=== PATIENT | male | born 1975 | race Caucasian/White ===

== ENCOUNTER 2018-11-26 20:44 | Emergency (ER) | payer OTHER ==
--- NOTE | 2018-11-26 20:53 | PDOC ---
Rapid Medical Evaluation Chief Complaint: Cold Symptoms Time Seen by Provider: 11/26/18 20:50 Medical Evaluation: Allergies Allergy/AdvReac Type Severity Reaction Status Date / Time No Known Allergies Allergy Verified 03/16/18 14:45 11/26/18 20:50 I did a brief in person evaluation on this patient. CC: Fever HPI: Pt has had a fever, sore throat and myalgias x 6 days. PE: Skin: Clear Lungs: Clear Heart:RRR Abd: soft, non tender MS: Moves all extremities without difficulty Neuro: alert Psych: appropriate affect. I have ordered: RBS and influenza Pt will proceed to [facility] ED for further evaluation. Discharge Disposition - Diagnosis Pharyngitis Qualifiers: Pharyngitis/tonsillitis etiology: other specified organisms Qualified Code(s): J02.8 - Acute pharyngitis due to other specified organisms - Referrals - Patient Instructions - Post Discharge Activity
[2018-11-26 20:54] VITALS: BP 123/78; PULSE 86; TEMP 98.8; BMI 26.2
[2018-11-26] MEDS ORDERED: PENICILLIN G BENZATHINE 1,200,000 UNIT/2 ML PFS IM ONE (22:38)
[2018-11-26] MEDS ORDERED: DEXAMETHASONE LIQUID 0.5 MG/5 ML 240 ML BULK BOTTLE PO ONE (22:38)
--- NOTE | 2018-11-26 22:41 | PDOC ---
History of Present Illness - General Chief Complaint: Cold Symptoms Stated Complaint: FLU Time Seen by Provider: 11/26/18 20:50 - History of Present Illness Initial Comments: 11/26/18 22:38 43-year-old male without comorbidities presents for evaluation of fever and progressively worsening sore throat 4 days. Past History - Past Medical History Allergies/Adverse Reactions: Allergies Allergy/AdvReac Type Severity Reaction Status Date / Time No Known Allergies Allergy Verified 11/26/18 20:54 Home Medications: Ambulatory Orders NK [No Known Home Medication] 11/26/18 COPD: No - Suicide/Smoking/Psychosocial Hx Smoking History: Never smoked Have you smoked in the past 12 months: No Information on smoking cessation initiated: No Hx Alcohol Use: No Drug/Substance Use Hx: No Substance Use Type: None Review of Systems - Review of Systems Constitutional: Yes: Chills, Fever, Malaise HEENTM: Yes: Throat Pain, Difficulty Swallowing *Physical Exam - Vital Signs Last Vital Signs Temp Pulse Resp BP Pulse Ox 98.8 F 86 18 123/78 98 11/26/18 20:51 11/26/18 20:51 11/26/18 20:51 11/26/18 20:51 11/26/18 20:51 - Physical Exam Comments: 11/26/18 22:39 HEAD: NC/AT EYES: Conjuntiva clear Ears: Canals and TM's normal NOSE: No d/c THROAT: Moist mucous membrances, oral pharanx erythemic with exudate, uvula midline NECK: Supple without adenopathy CARDIAC: S1 S2 LUNGS: CTA Full and Equal breath sounds ABDOMEN: Soft NT ND MS: Full ROM in all joints without edema NEUROLOGIC: No gross sensory or motor deficits, NVID SKIN: Normal color and temperature no lesions or rashes Medical Decision Making - Medical Decision Making 11/26/18 22:39 Personal examination. We'll treat for strep based on symptoms and history as well as examination. In light of negative rapid strep. A culture was sent *DC/Admit/Observation/Transfer Diagnosis at time of Disposition: Strep pharyngitis Pharyngitis Qualifiers: Pharyngitis/tonsillitis etiology: other specified organisms Qualified Code(s): J02.8 - Acute pharyngitis due to other specified organisms - Discharge Dispostion Disposition: HOME Condition at time of disposition: Stable Decision to Admit order: No - Referrals Referrals: Michael Warren MD [Staff Physician] - - Patient Instructions Printed Discharge Instructions: Strep Throat, DI for Strep Throat Additional Instructions: Warm saltwater gargles multiple times a day will help his your throat pain. He do not require further treatment after the injection you received in the emergency room. Avoid anti-inflammatories such as Advil Motrin Aleve and ibuprofen. He may take Tylenol for pain. Your also given a long-acting steroid which will help with your pain. Return to the emergency room for worsening symptoms and follow-up with your primary care provider in one to 2 days for further evaluation and treatment options. - Post Discharge Activity
[2018-11-26] MEDS ORDERED: DEXAMETHASONE SOD PHOSPHATE 10 MG/1 ML VIAL ONE (22:45)
[2018-11-26] MEDS ORDERED: PENICILLIN G BENZATHINE 2,400,000 UNIT/4 ML PFS ONE (22:45)
== END 2018-11-26 23:06 | disposition home or self-care (01) ==
LOC: JERFT 20:44
DX: J02.0 Streptococcal pharyngitis (principal)
CPT/HCPCS: 87070; 87077; 87804; 87880; 96372; 99281-25

== ENCOUNTER 2023-07-09 22:12 | Emergency (ER) | payer OTHER ==
[2023-07-09 22:24] VITALS: BMI 26.5
[2023-07-09] MEDS ORDERED: METOCLOPRAMIDE HCL INJECTION 10 MG/2 ML VIAL IVPB ONE (23:37)
[2023-07-09] MEDS ORDERED: SODIUM CHLORIDE 0.9% 500 ML INFUS.BAG IV ONE (23:37)
[2023-07-09] MEDS ORDERED: ACETAMINOPHEN 1000 MG/100 ML BAG IVPB ONE (23:37)
[2023-07-09] MEDS ORDERED: METOCLOPRAMIDE HCL INJECTION 10 MG/2 ML VIAL ONE (23:50)
[2023-07-09] MEDS ORDERED: ACETAMINOPHEN INJECTION 100 ML IVPB ONE (23:50)
[2023-07-10 00:26] LABS: BASO % 0.3 % (0-2.0); HEMATOCRIT 45.6 % (35.4-49); HEMOGLOBIN 16.1 GM/dL (11.7-16.9); LYMPH % 6.9 % (8-40); MCH 30.2 pg (25.7-33.7); MCHC 35.3 g/dl (32.0-35.9); MEAN CELL VOLUME 85.6 fl (80-96); MEAN PLT VOLUME 8.3 fl (7.5-11.1); MONO % 8.9 % (3.8-10.2); NEUT % 83.9 % (42.8-82.8); PLATELET COUNT 143 10^3/uL (134-434); RBC 5.33 M/mm3 (4.00-5.60); RDW 12.6 % (11.9-15.9)
[2023-07-10 00:48] LABS: POTASSIUM 3.9 mmol/L (3.5-5.1)
[2023-07-10 00:51] VITALS: BP 116/65; RESP 16
[2023-07-10 00:52] LABS: BLOOD UREA NITROGEN 14.3 mg/dL (7-18); CALCIUM 7.7 mg/dL (8.5-10.1)
[2023-07-10 00:53] LABS: ALBUMIN 3.1 g/dl (3.4-5.0)
[2023-07-10 00:56] LABS: CREATININE 1.3 mg/dL (0.55-1.3)
[2023-07-10 00:57] LABS: BILIRUBIN,TOTAL 0.8 mg/dL (0.2-1); TOT PROT 6.2 g/dl (6.4-8.2)
[2023-07-10] MEDS ORDERED: SODIUM CHLORIDE 1,000 ML IV STA (01:36)
[2023-07-10 01:48] VITALS: PULSE 99; TEMP 100.7
== END 2023-07-10 02:51 | disposition home or self-care (01) ==
LOC: JER 22:12
PROC: 3E033NZ Introduction of Analgesics, Hypnotics, Sedatives into Peripheral Vein, Percutaneous Approach (ICD-10-PCS; principal; 2023-07-10)
PROC: 3E033GC Introduction of Other Therapeutic Substance into Peripheral Vein, Percutaneous Approach (ICD-10-PCS; 2023-07-10)
DX: R06.02 Shortness of breath (principal); R53.83 Other fatigue; B34.9 Viral infection, unspecified; R51.9 Headache, unspecified; M79.10 Myalgia, unspecified site; R61 Generalized hyperhidrosis; R63.0 Anorexia; R05.9 Cough, unspecified; R50.9 Fever, unspecified; Z20.822 Contact with and (suspected) exposure to COVID-19
CPT/HCPCS: 0241U-QW; 36415; 71046-TC-FY; 80053; 85025; 87651; 99284-25

== ENCOUNTER 2023-07-12 07:46 | Emergency (ER) | payer OTHER ==
[2023-07-12 08:13] VITALS: RESP 16; BMI 27.0
[2023-07-12] MEDS ORDERED: ACETAMINOPHEN 500 MG TABLET (FP) PO ONE (08:41)
[2023-07-12] MEDS ORDERED: KETOROLAC TROMETHAMINE 30 MG/1 ML VIAL IM ONE (08:41)
[2023-07-12] MEDS ORDERED: KETOROLAC TROMETHAMINE 30 MG/1 ML VIAL ONE (08:42)
[2023-07-12] MEDS ORDERED: ACETAMINOPHEN 500 MG TABLET (FP) ONE (08:42)
[2023-07-12 09:46] VITALS: BP 98/65; PULSE 76; TEMP 98.5
== END 2023-07-12 10:40 | disposition home or self-care (01) ==
LOC: JER 07:46 → JERFT 07:46
PROC: 3E0233Z Introduction of Anti-inflammatory into Muscle, Percutaneous Approach (ICD-10-PCS; principal; 2023-07-12)
DX: M79.10 Myalgia, unspecified site (principal); R50.9 Fever, unspecified; R05.9 Cough, unspecified; U07.1 COVID-19
CPT/HCPCS: 0241U-QW; 99284-25

== ENCOUNTER 2023-07-14 17:05 | Emergency (ER) | payer OTHER ==
[2023-07-14 17:11] VITALS: BP 105/67; PULSE 91; RESP 18; TEMP 98.3; BMI 26.5
[2023-07-14] MEDS ORDERED: KETOROLAC TROMETHAMINE 30 MG/1 ML VIAL IVPUSH ONE (17:42)
[2023-07-14] MEDS ORDERED: SODIUM CHLORIDE 0.9% 500 ML INFUS.BAG IV ONE (17:42)
[2023-07-14] MEDS ORDERED: ACETAMINOPHEN 1000 MG/100 ML BAG IVPB ONE (17:42)
[2023-07-14] MEDS ORDERED: KETOROLAC TROMETHAMINE 30 MG/1 ML VIAL ONE (17:48)
[2023-07-14] MEDS ORDERED: ACETAMINOPHEN INJECTION 100 ML IVPB ONE (17:48)
[2023-07-14 18:34] LABS: BASO % 0.3 % (0-2.0); EOS % 0.4 % (0-4.5); HEMATOCRIT 45.7 % (35.4-49); HEMOGLOBIN 15.7 GM/dL (11.7-16.9); LYMPH % 9.4 % (8-40); MCH 29.2 pg (25.7-33.7); MCHC 34.4 g/dl (32.0-35.9); MEAN CELL VOLUME 84.9 fl (80-96); MEAN PLT VOLUME 8.9 fl (7.5-11.1); MONO % 5.4 % (3.8-10.2); NEUT % 84.5 % (42.8-82.8); PLATELET COUNT 180 10^3/uL (134-434); RBC 5.39 M/mm3 (4.00-5.60); RDW 12.6 % (11.9-15.9); WHITE BLOOD COUNT 5.8 K/mm3 (4.0-10.0)
[2023-07-14 18:53] LABS: CALCIUM 8.5 mg/dL (8.5-10.1)
[2023-07-14 18:55] LABS: ALBUMIN 2.9 g/dl (3.4-5.0); BLOOD UREA NITROGEN 11.6 mg/dL (7-18)
[2023-07-14 18:59] LABS: BILIRUBIN,TOTAL 0.6 mg/dL (0.2-1); TOT PROT 6.4 g/dl (6.4-8.2)
[2023-07-14] MEDS ORDERED: AZITHROMYCIN 500 MG TABLET PO ONE (19:22)
[2023-07-14] MEDS ORDERED: DEXAMETHASONE SOD PHOSPHATE 10 MG/1 ML VIAL IVPUSH ONE (19:22)
[2023-07-14] MEDS ORDERED: AZITHROMYCIN 500 MG TABLET ONE (19:26)
[2023-07-14] MEDS ORDERED: DEXAMETHASONE SOD PHOSPHATE 10 MG/1 ML VIAL ONE (19:26)
== END 2023-07-14 20:12 | disposition home or self-care (01) ==
LOC: JER 17:05
PROC: 3E033NZ Introduction of Analgesics, Hypnotics, Sedatives into Peripheral Vein, Percutaneous Approach (ICD-10-PCS; principal; 2023-07-14)
PROC: 3E033GC Introduction of Other Therapeutic Substance into Peripheral Vein, Percutaneous Approach (ICD-10-PCS; 2023-07-14)
PROC: 3E0333Z Introduction of Anti-inflammatory into Peripheral Vein, Percutaneous Approach (ICD-10-PCS; 2023-07-14)
DX: R51.9 Headache, unspecified (principal); U07.1 COVID-19; J01.90 Acute sinusitis, unspecified
CPT/HCPCS: 36415; 80053; 85025; 99284-25; J1100